=== PATIENT | female | born 1990 | race Asian ===

== ENCOUNTER 2021-09-30 18:17 | Emergency (ER) | payer MEDICAID ==
[~2021-09-30] VITALS: Ht 154.9 cm; Wt 52.6 kg
--- NOTE | 2021-09-30 18:17 | NUR ---
PT BIBRA 86 C/O HEAD PAIN ,NECK PAIN, R HIP AND R CLAVICLE BRUISE. PT IS AAOX4, NOT IN RESPIRATORY DISTRESS, V/S STABLE, KEPT RESTED AND COMFORTABLE. WILL CONTINUE TO MONITOR.
--- NOTE | 2021-09-30 19:11 | NUR ---
SEEN AND EXAMINED BY
[2021-09-30] MEDS ORDERED: oxyCODONE/APAP (5/325 MG) 1 UDTAB TABLET PO ONE (19:30)
[2021-09-30] MEDS ORDERED: oxyCODONE/APAP (5/325 MG) 1 UDTAB TABLET ONE (19:36)
--- NOTE | 2021-09-30 19:45 | NUR ---
PT SIGNED WAIVER.
[2021-09-30] MEDS ORDERED: CYCL5TAB PO (21:34)
[2021-09-30] MEDS ORDERED: IBUP-1955 PO (21:34)
[2021-09-30 21:50] VITALS: BP 117/71
--- NOTE | 2021-09-30 21:51 | NUR ---
Patient discharged to home in stable condition. RX, Written and verbal after care instructions given. Patient verbalizes understanding of instruction.
== END 2021-09-30 21:51 | disposition home or self-care (01) ==
LOC: ER 18:22
DX: R07.89 Other chest pain (principal); M54.50 Low back pain, unspecified; M54.6 Pain in thoracic spine; M25.551 Pain in right hip; R51.9 Headache, unspecified; M54.2 Cervicalgia; V49.69XA Unspecified car occupant injured in collision with other motor vehicles in traffic accident, initial encounter; Y93.89 Activity, other specified; Y92.413 State road as the place of occurrence of the external cause; Y99.8 Other external cause status
CPT/HCPCS: 70450-TC; 71045-TC; 72125-TC; 72131-TC